=== PATIENT | male | born 1995 | race Caucasian/White ===

== ENCOUNTER → 2017-04-21 | Outpatient (CLI) | payer BC ==
[2017-04-21 13:02] LABS: BASO % 0.5 % (0.0-1.0); EOS # 0.2 10^3/uL (0.0-0.50); EOS % 3.6 % (0.0-3.0); IMMATURE GRANULOCYTE % 0.2 % (0-0); LYMPH # 2.7 10^3/uL (1.5-6.5); LYMPH % 41.5 % (24.0-44.0); MEAN CORPUSCULAR HEMOGLOBIN 31.7 pg (27.0-33.0); MEAN CORPUSCULAR HGB CONC 34.1 g/dl (32.0-36.5); MONO # 1.1 10^3/uL (0.0-0.8); MONO % 16.5 % (0.0-5.0); NEUTROPHILS # 2.4 10^3/uL (1.8-7.7); NEUTROPHILS % 37.7 % (36.0-66.0); PLATELET COUNT, AUTOMATED 248 10^3/uL (150-450); RED CELL DISTRIBUTION WIDTH 12.4 % (11.5-14.5); WHITE BLOOD COUNT 6.4 10^3/uL (4.0-10.0)
== END ==
LOC: M WUC 12:15
PROVIDERS: ATTEND Physician Assistant
DX: R59.0 Localized enlarged lymph nodes (principal)

== ENCOUNTER → 2017-04-22 | Outpatient (CLI) | payer BC ==
--- NOTE | 2017-04-22 11:57 | REP ---
Bilateral inguinal ultrasound for lymph nodes: There are multiple lymph nodes in the right and left inguinal areas. On the right, the largest lymph node measures 2.6 x 1.2 x 0.8 cm and is borderline enlarged. The largest lymph node in the left measures 3.6 x 1.9 x 0.3 cm and is upper normal size. Signed by Chapincito Rasmussen MD 04/22/2017 11:49 A
== END ==
LOC: M RAD 10:31
PROVIDERS: ATTEND Physician Assistant
DX: R59.0 Localized enlarged lymph nodes (principal)

== ENCOUNTER 2018-07-17 00:40 | Emergency (ER) | payer BC ==
[~2018-07-17] VITALS: Ht 182.9 cm; Wt 72.7 kg
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
[2018-07-17] MEDS ORDERED: OXYMETAZOLINE NASAL SPRAY (AFRIN) ONE (06:15)
[2018-07-17 06:31] VITALS: BP 141/72
== END 2018-07-17 06:32 | disposition home or self-care (01) ==
LOC: M ED 00:40
DX: S02.2XXA Fracture of nasal bones, initial encounter for closed fracture (principal); Y04.8XXA Assault by other bodily force, initial encounter; Y92.410 Unspecified street and highway as the place of occurrence of the external cause

== ENCOUNTER 2018-07-19 08:58 | Day surgery (SDC) | payer BC ==
[~2018-07-19] VITALS: Ht 182.9 cm; Wt 82.0 kg
[2018-07-19] MEDS ORDERED: MIDAZOLAM INJ 2 MG/2 ML VIAL (J2250) As Ordered ONE (11:01)
[2018-07-19] MEDS ORDERED: fentaNYL 100 MCG/2 ML INJECTION (J3010) As Ordered ONE (11:01)
[2018-07-19] MEDS ORDERED: LIDOCAINE 2% INJ 100 MG/5 ML SDV (FOR ANES.) As Ordered ONE (11:01)
[2018-07-19] MEDS ORDERED: PROPOFOL 200 MG/20 ML VIAL As Ordered ONE (11:01)
[2018-07-19] MEDS ORDERED: OXYMETAZOLINE NASAL SPRAY (AFRIN) As Ordered ONE (11:26)
[2018-07-19] MEDS ORDERED: ONDANSETRON 4MG/2ML VIAL (J2405) As Ordered ONE (11:31)
[2018-07-19] MEDS ORDERED: dexameTHASONE 4 MG/ML 1ML VIAL (J1100) As Ordered ONE (11:31)
[2018-07-19] MEDS: PERCOCET 5MG/325MG TAB PO PRN ×2 (11:55→13:15)
[2018-07-19] MEDS ORDERED: PERCOCET 5MG/325MG TAB As Ordered ONE (11:55)
[2018-07-19] MEDS ORDERED: KETOROLAC 30 MG/ML VIAL (J1885) As Ordered ONE (11:55)
[2018-07-19] MEDS ORDERED: HYDROMORPHONE HCL 0.5 MG/ 0.5 ML SYRINGE (J1170 PER 1) IV PRN (12:00)
[2018-07-19] MEDS ORDERED: KETOROLAC 30 MG/ML VIAL (J1885) IV PRN (12:00)
[2018-07-19] MEDS ORDERED: PERCOCET 5MG/325MG TAB PO PRN (12:00)
[2018-07-19] MEDS ORDERED: LR 1,000 ML IV SCH (12:00)
[2018-07-19] MEDS: fentaNYL 100 MCG/2 ML INJECTION (J3010) IV PRN ×4 (12:00→12:15)
[2018-07-19] MEDS ORDERED: ONDANSETRON 4MG/2ML VIAL (J2405) IV PRN (12:00)
[2018-07-19 13:05] VITALS: BP 123/77
== END 2018-07-19 13:23 | disposition home or self-care (01) ==
LOC: M SDC 08:58
PROVIDERS: ATTEND Specialist
DX: S02.2XXA Fracture of nasal bones, initial encounter for closed fracture (principal); Y04.0XXA Assault by unarmed brawl or fight, initial encounter; Y92.9 Unspecified place or not applicable; Y93.9 Activity, unspecified; Y99.9 Unspecified external cause status
CPT/HCPCS: 21320; J1100; J1885; J2250; J2405; J3010

== ENCOUNTER 2018-11-02 09:16 | Emergency (ER) | payer BC ==
[~2018-11-02] VITALS: Ht 182.9 cm; Wt 80.5 kg
[2018-11-02 09:17] VITALS: BP 171/74
[2018-11-02] MEDS ORDERED: FLUORESCEIN OPHTH 1 MG STRIP OS ONE (09:45)
[2018-11-02] MEDS ORDERED: VALA1TAB2 PO (10:00)
[2018-11-02] MEDS ORDERED: PRED20TA PO (10:00)
[2018-11-02] MEDS ORDERED: PERC5TAB12 PO (10:00)
[2018-11-02] MEDS ORDERED: ZIRG0.152 OS (14:30)
== END 2018-11-02 10:18 | disposition home or self-care (01) ==
LOC: M ED 09:16
DX: B02.39 Other herpes zoster eye disease (principal)

== ENCOUNTER → 2019-02-10 | Outpatient (REF) | payer BC ==
[~2019-02-10] MED LIST: PERC5TAB12 PO; PRED20TA PO; VALA1TAB2 PO; ZIRG0.152 OS
== END ==
LOC: M LAB REF 12:42
PROVIDERS: ATTEND Nurse Practitioner Family
DX: J02.9 Acute pharyngitis, unspecified (principal)